=== PATIENT | male | born 1945 | race African-American/Black ===

== ENCOUNTER 2018-04-07 20:08 | Inpatient (IN) ==
[2018-04-07] MEDS ORDERED: MORPHINE 4 MG/1 ML VIAL IV STA (20:47)
[2018-04-07 21:48] LABS: Basophils % 0.2 % (0.0-0.8); Eosinophils % 0.1 % (0.00-10.9); Hematocrit 47.5 VOL% (42.0-52.0); Hemoglobin 15.4 GM/DL (14.0-18.0); Immature Granulocytes % 0.4 %; Immature Granulocytes Absolute 0.04 #; Lymphocytes # 1.4 10*3/uL (1.4-4.0); Lymphocytes % 13.2 % (21.2-54.2); Mean Corpuscular HGB Conc 32.4 GM/DL (32-36); Mean Corpuscular Hemoglobin 28 PG (27-34); Mean Corpuscular Volume 86.1 FL (87-102); Mean Platelet Volume 11.3 FL (9.6-12.0); Monocytes # 0.9 10*3/uL (0.11-0.8); Monocytes % 8.9 % (1.7-12.7); Neutrophils # 7.9 10*3/uL (1.4-7.4); Neutrophils % 77.2 % (38.7-73.9); Platelet Count 203 T/CUMM (130-400); Red Blood Count 5.52 MC/CUMM (3.8-5.5); Red Cell Distribution Width 13.8 % (9.3-17.3); White Blood Count 10.2 T/CUMM (4-12)
[2018-04-07 22:04] LABS: INR 1.1; PT Patient Result 11.5 SECS; Partial Thromboplastin Time 30.1 SECS (0-40)
[2018-04-07 22:06] LABS: Albumin 3.6 G/DL (3.4-5.0); Bilirubin,Total 0.7 MG/DL (0.2-1.0); Calcium 9.2 MG/DL (8.5-10.1); Osmolality,Calculated 281.3 MOS/KG (273-304); Potassium 3.9 MMOL/L (3.5-5.1); Total Protein 7.7 G/DL (6.4-8.3)
[2018-04-07 22:09] LABS: Apearance,Urine CLEAR (Clear); Bilirubin,Urine Negative (Negative); Blood, Urine Negative (Negative); Glucose,Urine (UA) Negative (Negative); Ketones,Urine Negative (Negative); Nitrite,Urine Negative (Negative); Protein,Urine 30 MG/DL; RBC,Urine <1 /HPF (0-4); Urine Color Yellow (Yellow); Urine Specific Gravity 1.019 (1.001-1.035); WBC,Urine <1 /HPF (0-6)
[2018-04-07] MEDS ORDERED: hydrALAZINE 20 MG/1 ML VIAL IV STA (22:38)
[2018-04-08] MEDS ORDERED: hydrALAZINE 20 MG/1 ML VIAL IV PRN (00:14)
[2018-04-08] MEDS ORDERED: ONDANSETRON 4 MG/2 ML VIAL IV PRN (00:14)
[2018-04-08] MEDS: LACTATED RINGERS 1,000 ML IV SCH ×4 (00:36→23:45)
[2018-04-08] MEDS: PIPERACILLIN/TAZOBACTAM 3,375 MG in SODIUM CHLORIDE 0.9% 100 ML IV SCH ×3 (00:39→18:15)
[2018-04-08] MEDS: MORPHINE 4 MG/1 ML VIAL IV PRN ×3 (01:31→20:58)
[2018-04-09] MEDS: PIPERACILLIN/TAZOBACTAM 3,375 MG in SODIUM CHLORIDE 0.9% 100 ML IV SCH ×3 (01:32→17:40)
[2018-04-09] MEDS ORDERED: LISINOPRIL PO SCH (09:00)
[2018-04-09] MEDS: ENALAPRIL 10 MG TABLET PO SCH (10:09)
[2018-04-09] MEDS: ATORVASTATIN 20 MG TABLET PO SCH (10:11)
[2018-04-09] MEDS: MORPHINE 4 MG/1 ML VIAL IV PRN (11:19)
[2018-04-09] MEDS: LACTATED RINGERS 1,000 ML IV SCH (19:54)
[2018-04-10] MEDS: MORPHINE 4 MG/1 ML VIAL IV PRN (00:21)
[2018-04-10] MEDS: PIPERACILLIN/TAZOBACTAM 3,375 MG in SODIUM CHLORIDE 0.9% 100 ML IV SCH ×3 (00:25→17:55)
[2018-04-10] MEDS: LACTATED RINGERS 1,000 ML IV SCH ×3 (00:25→14:30)
[2018-04-10] MEDS: ATORVASTATIN 20 MG TABLET PO SCH (09:26)
[2018-04-10] MEDS: ENALAPRIL 10 MG TABLET PO SCH (09:26)
[2018-04-10] MEDS ORDERED: BUPIVACAINE MPF 0.25% /EPI 30 ML VIAL ONE (10:20)
[2018-04-10] MEDS ORDERED: TISSUE ADHESIVE 1 EACH APPLICATOR TOP ONE (10:21)
[2018-04-10] MEDS ORDERED: LIDOCAINE 1%/EPI INJ 20 ML VIAL ONE (10:21)
[2018-04-10] MEDS ORDERED: DEXAMETHASONE 10 MG/1 ML VIAL ONE (12:40)
[2018-04-10] MEDS ORDERED: fentaNYL 100 MCG/2 ML VIAL ONE (12:40)
[2018-04-10] MEDS ORDERED: SEVOFLURANE 1 UNIT/15 MINUTE INH ONE (12:40)
[2018-04-10] MEDS ORDERED: PROPOFOL 200 MG/20 ML VIAL IV ONE (12:40)
[2018-04-10] MEDS ORDERED: ROCURONIUM 100 MG/10 ML VIAL IV ONE (12:41)
[2018-04-10] MEDS ORDERED: NEOSTIGMINE 10 MG/10 ML VIAL ONE (12:41)
[2018-04-10] MEDS ORDERED: GLYCOPYRROLATE 0.4 MG/2 ML VIAL ONE (12:41)
[2018-04-10] MEDS ORDERED: ACETAMINOPHEN 1,000 MG/100 ML VIAL IV ONE (12:41)
[2018-04-10] MEDS ORDERED: ESMOLOL 100 MG/10 ML VIAL IV ONE (12:41)
[2018-04-10 14:46] LABS: Hematocrit 41.4 VOL% (42.0-52.0); Hemoglobin 13.5 GM/DL (14.0-18.0)
[2018-04-11] MEDS: LACTATED RINGERS 1,000 ML IV SCH ×2 (00:05→11:20)
[2018-04-11] MEDS: PIPERACILLIN/TAZOBACTAM 3,375 MG in SODIUM CHLORIDE 0.9% 100 ML IV SCH ×2 (00:05→11:20)
[2018-04-11 05:42] LABS: Basophils % 0.1 % (0.0-0.8); Hematocrit 38.4 VOL% (42.0-52.0); Hemoglobin 12.9 GM/DL (14.0-18.0); Immature Granulocytes % 0.6 %; Immature Granulocytes Absolute 0.06 #; Lymphocytes # 0.6 10*3/uL (1.4-4.0); Lymphocytes % 5.7 % (21.2-54.2); Mean Corpuscular HGB Conc 33.6 GM/DL (32-36); Mean Corpuscular Hemoglobin 28 PG (27-34); Mean Corpuscular Volume 83.5 FL (87-102); Mean Platelet Volume 11.9 FL (9.6-12.0); Monocytes # 0.9 10*3/uL (0.11-0.8); Monocytes % 8.4 % (1.7-12.7); Neutrophils # 9.2 10*3/uL (1.4-7.4); Neutrophils % 85.2 % (38.7-73.9); Platelet Count 195 T/CUMM (130-400); White Blood Count 10.8 T/CUMM (4-12)
[2018-04-11 06:10] LABS: Calcium 8.7 MG/DL (8.5-10.1); Osmolality,Calculated 285.1 MOS/KG (273-304); Potassium 3.6 MMOL/L (3.5-5.1)
[2018-04-11 06:16] LABS: Albumin 2.3 G/DL (3.4-5.0); Bilirubin,Direct 0.25 MG/DL (0.0-0.20); Bilirubin,Indirect 0.7 MG/DL (0.0-1.0); Bilirubin,Total 0.9 MG/DL (0.2-1.0); Total Protein 6.5 G/DL (6.4-8.3)
[2018-04-11 07:44] VITALS: BP 156/79
[2018-04-11] MEDS: ATORVASTATIN 20 MG TABLET PO SCH (11:21)
[2018-04-11] MEDS: ENALAPRIL 10 MG TABLET PO SCH (11:21)
== END 2018-04-11 11:15 | disposition home or self-care (01) | DRG 419 ==
LOC: N.ED 20:08 → N.EDINP 22:54 → N.3E 23:26
PROVIDERS: ADMIT Surgery; ATTEND Surgery
PROC: LAPCHOL (2018-04-10 11:20)